=== PATIENT | male | born 1980 | race Caucasian/White ===

== ENCOUNTER → 2018-11-19 | Outpatient (CLI) | payer BC ==
--- NOTE | 2018-11-20 11:06 | CT ---
EXAMINATION TYPE: CT heart w calcium score DATE OF EXAM: 11/19/2018 COMPARISON: None HISTORY: Screening for cardiovascular disorder. 213.9 CT DLP: 74.10 mGycm Automated exposure control for dose reduction was used. CT CALCIUM SCORING Coronary calcium is a marker for plaque (fatty deposits) in a blood vessel or atherosclerosis (harden ing of the arteries). The presence and amount of calcium detected in a coronary artery by the CT sca n, indicates the presence and amount of atherosclerotic plaque. These calcium deposits appear years before the development of heart disease symptoms such as chest pain and shortness of breath. A calcium score is computed for each of the coronary arteries based upon the volume and density of th e calcium deposits. This can be referred to as your calcified plaque burden. It does not correspond directly to the percentage of narrowing in the artery but does correlate with the severity of the un derlying coronary atherosclerosis. PROCEDURE TECHNIQUE - Prospective Gating was used. Slice thickness: 3mm. Density threshold (HU): 130, Pixel threshold: 3, Algorithm: discrete. RESULTS Region: LM Calcium Score ([place]): 0 Region: RCA Calcium Score ([place]): 1 Volume (mm3): 2 Region: LAD Calcium Score ([place]): 8 Volume (mm3): 8 Region: CX Calcium Score ([place]): 0 Total: Calcium Score ([place]): 9 Volume (mm3): 10 Mass (g): TOTAL CALCIUM SCORE: 9 No suspicious incidental findings identified. IMPRESSION: Calcium Score: 1-10 Implication: Minimal identifable plaque. Risk of Coronary Artery Disease: Very unlikely, less than 10%.
== END | disposition home or self-care (01) ==
LOC: RADCTMAIN 09:14
PROVIDERS: ATTEND Internal Medicine Interventional Cardiology
DX: I25.10 Atherosclerotic heart disease of native coronary artery without angina pectoris (principal)
CPT/HCPCS: 75571

== ENCOUNTER → 2019-08-10 | Outpatient (CLI) | payer OTHER ==
--- NOTE | 2019-08-10 12:44 | XR ---
EXAMINATION TYPE: XR knee complete bilateral DATE OF EXAM: 08/10/2019 CLINICAL HISTORY: Bilateral knee pain after fall. TECHNIQUE: Three views of the bilateral knees were obtained. COMPARISON: None. FINDINGS: There is no acute fracture/dislocation evident in either knee. Enthesophytes of the superi or pole of the bilateral patella are present. Probable bone islands of the right lateral femoral cond yle. Fabella is incidentally noted on the left. The tri-compartment joint spaces appear within normal limits. The overlying soft tissue appears unremarkable. IMPRESSION: There is no acute fracture or dislocation in the either knee.
== END | disposition home or self-care (01) ==
LOC: RADXRMAIN 11:36
PROVIDERS: ATTEND Emergency Medicine
DX: S80.01XA Contusion of right knee, initial encounter (principal); S80.02XA Contusion of left knee, initial encounter; M25.561 Pain in right knee; M25.562 Pain in left knee; Z98.890 Other specified postprocedural states